=== PATIENT | male | born 1980 | race Caucasian/White ===

== ENCOUNTER 2017-01-16 09:36 | Inpatient (IN) | payer MEDICAID ==
[~2017-01-16] VITALS: Ht 182.9 cm; Wt 90.7 kg
--- NOTE | 2017-01-16 09:36 | NUR ---
Patient was BIBA at this time and taken to bed 07 via gurney per EMS.
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
--- NOTE | 2017-01-16 09:40 | NUR ---
Dr. Sandra at bedside evaluating patient.
[2017-01-16] MEDS ORDERED: NACL 0.9% 1,000 ML IV ONE (09:45)
[2017-01-16] MEDS ORDERED: MULTIVITAMIN-12 10 ML, THIAMINE 100 MG, MAGNESIUM SULFATE 50% 2,000 MG, FOLIC ACID 5 MG... IV ONE (09:45)
[2017-01-16] MEDS ORDERED: VANCOMYCIN 1,000 MG in DEXTROSE 5% 250 ML IV ONE (09:45)
[2017-01-16 09:46] VITALS: BP 138/87
--- NOTE | 2017-01-16 10:20 | NUR ---
ATTEMPTED TO INSERT IV X3 --REQUESTED OTHER RN TO ATTEMPT-- PT HAS HX OF IVDA
[2017-01-16] MEDS ORDERED: ONDANSETRON 4 MG/2 ML VIAL IVP ONE (10:40)
[2017-01-16] MEDS ORDERED: MAGNESIUM OXIDE 400 MG TAB PO ONE (10:40)
[2017-01-16] MEDS ORDERED: ACETAMINOPHEN 325 MG TAB PO PRN (10:50)
[2017-01-16] MEDS ORDERED: VANCOMYCIN PER PHARMACY MC PRN (10:50)
[2017-01-16] MEDS ORDERED: cefTRIAXone 1,000 MG VIAL ONE (11:02)
[2017-01-16] MEDS ORDERED: VANCOMYCIN 1,000 MG VIAL ONE (11:03)
--- NOTE | 2017-01-16 11:09 | NUR ---
XRAY at bedside.
--- NOTE | 2017-01-16 11:31 | NUR ---
Dr. Sandra at bedside to evaluate patient.
--- NOTE | 2017-01-16 12:00 | NUR ---
RN NOT AVAILABLE AT THIS TIME FOR REPORT, CURRENTLY ATTENDING TO ANOTHER PT---ALINE HARRINGTON WILL CALL BACK SHORTLY
--- NOTE | 2017-01-16 12:11 | NUR ---
Patient will be admitted to care of DUSTY CALVIN. Admited to . Will go to room. Belongings list completed. Report to .
--- NOTE | 2017-01-16 12:12 | NUR ---
NO REACTION TO VANCOMYCIN NOTED OF YET
--- NOTE | 2017-01-16 12:17 | NUR ---
Patient going to TELE for admission via gurney per EMT/RN.
--- NOTE | 2017-01-16 12:30 | NUR ---
PT CAME ON THE FLOOR WITH 2 ER NURSES. PT IS ALERT AND ORIENTED. PT SCOOTED HIMSELF FROM GURNEY TO BED. PT IS A 37 Y/O MALE. PT HAS AN IV ON L AC. VANCO RUNNING. THEY ALSO BROUGHT THE BANANA BAG FOR ME TO ADMINISTER. WILL WAIT UNTIL VANCO IS DONE. ASSESSED HIS SKIN. PT HAS A LONG 10-12 INCHES INCISION ON TORSO- 27 STITCHES. PT ALSO HAS AN ABDOMINAL INCISION WITH 32 BRAXTON. L LEG, ABOVE THE KNEE WITH 10 BRAXTON, BELOW- 3 BRAXTON AND 7 BRAXTON. L ANKLE MEDIAL WITH 2 STITCHES. PT CLAIMS THERE ARE TITANIUM SCREWS IN THEM. HE ALSO HAS A DRY SCAB ON HEEL WITH SLIGHT TEAR. ATTACHED TELE MONITOR. NEW ID BAND AND FALL RISK BAND ON. PT IS HUNGRY. ORDERED HIM A LUNCH TRAY. NO COMPLAINTS OF PAIN. V/S WITHIN NORMAL RANGE. WILL CONTINUE TO MONITOR PT.
--- NOTE | 2017-01-16 14:00 | NUR ---
PT REQUESTING PHONE NUMBER FOR MOTHER OR SISTER. PT DOES NOT KNOW THE NUMBER. CALLED OVER TO [facility] [place]QUEST[place] INFORMATION FROM [employer] TO LOCATE NEXT OF KIN. THEY GAVE ME A CELL PHONE NUMBER. NOT SURE WHO'S NUMBER IT WAS. I LEFT MESSAGE TO CALL HERE. PER PT, IT WAS HIS MOTHER'S NUMBER AND THAT SHE CALLED AND THEY SPOKE. WANTED MORE FOOD. I REQUESTED A HAM AND CHEESE SANDWICH AND A SODA.
[2017-01-16 15:12] VITALS: BP 127/80
[2017-01-16] MEDS: HYDROcodone/APAP 5/325 MG 1 TAB TAB PO PRN ×2 (15:29→20:19)
[2017-01-16 16:00] VITALS: BP 116/69
--- NOTE | 2017-01-16 16:48 | NUR ---
PT RESTING IN BED. NO SIGNS OF DISTRESS. WANTED ANOTHER SANDWICH. TOLD HIM DINNER IS ON IT'S WAY. WILL CONTINUE TO MONITOR PT.
[2017-01-16] MEDS ORDERED: VANCOMYCIN 1GM/DEXT 5% PREMIX 200 ML IV SCH (18:00)
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
[2017-01-16] MEDS: NACL 0.9% 1,000 ML IV SCH ×2 (18:53→23:42)
--- NOTE | 2017-01-16 19:05 | NUR ---
ENDORSED PT TO THE CRYSTALLOGRAPHY TEACHER NURSE AT BEDSIDE FOR CONTINUITY OF CARE. PT IS IN STABLE CONDITION.
--- NOTE | 2017-01-16 19:30 | NUR ---
RECEIVED REPORT FROM ALINE HARRINGTON AT BEDSIDE. PT IS ALERT AWAKE ORIENTED X4 WITH CONFUSION SOMETIMES. INITIAL ASSESSMENT DONE. NO S/S OF RESPIRATORY DISTRESS OR SOB NOTED. C/O BACK PAIN SCALING 6/10. WILL GIVE PRN PAIN MEDICATION ORDERED. PLAN OF CARE REVIEWED TO PT AND VERBALIZED UNDERSTANDING. CALL LIGHT WITHIN REACH. WILL CONTINUE TO MONITOR.
[2017-01-16 20:00] VITALS: BP 121/72
[2017-01-16] MEDS: CLINDAMYCIN 600 MG in DEXTROSE 5% 50 ML IV SCH (20:17)
[2017-01-16] MEDS: VANCOMYCIN 1GM/DEXT 5% PREMIX 200 ML IV SCH (20:18)
--- NOTE | 2017-01-16 22:50 | NUR ---
CALLED DR. TAVAREZ AND NOTIFIED THAT PT IS HAVING A LOT OF PAIN ON HIS BACK AND CURRENT PRN PAIN MEDICATION IS NOT EFFECTIVE AND NEW ORDERS WERE GIVEN (PLS. SEE CPOE). NEW ORDERS NOTED AND CARRIED OUT. WILL CONTINUE TO MONITOR.
[2017-01-16] MEDS ORDERED: MORPHINE SULFATE 2 MG/ML SYR ONE (23:15)
[2017-01-16] MEDS: ONDANSETRON 4 MG/2 ML VIAL IVP PRN (23:17)
[2017-01-17] VITALS: BP 126/81
--- NOTE | 2017-01-17 | NUR ---
PT IS SLEEPING RIGHT NOW BUT EASILY AROUSABLE. NO S/S OF ANY DISCOMFORT AT THIS TIME. ALL NEEDS ARE ATTENDED. CALL LIGHT WITHIN REACH. WILL CONTINUE TO MONITOR.
[2017-01-17] MEDS: ONDANSETRON 4 MG/2 ML VIAL IVP PRN (02:41)
[2017-01-17] MEDS: MORPHINE SULFATE 2 MG/ML SYR IVP PRN ×3 (02:41→21:05)
[2017-01-17 04:00] VITALS: BP 119/83
[2017-01-17] MEDS: CLINDAMYCIN 600 MG in DEXTROSE 5% 50 ML IV SCH ×3 (04:51→23:13)
[2017-01-17] MEDS: VANCOMYCIN 1GM/DEXT 5% PREMIX 200 ML IV SCH ×3 (04:52→21:04)
--- NOTE | 2017-01-17 05:30 | NUR ---
AM CARE RENDERED. BED LINEN CHANGED. INSTRUCTED PT REPOSITION. KEPT CLEAN AND DRY. CALL LIGHT WITHIN REACH, WILL CONTINUE TO MONITOR.
--- NOTE | 2017-01-17 07:24 | NUR ---
PT HAS NO S/S OF ANY DISCOMFORT. PLAN OF CARE ENDORSE TO BENNIE RN AT BEDSIDE FOR CONTINUITY OF CARE.
--- NOTE | 2017-01-17 07:25 | NUR ---
ALERT AND ORIENTED X4, BREATHING EVEN AND UNLABORED ON ROOM AIR, NO SIGNS OF ACUTE DISTRESS, SKIN WARM AND DRY, ABDOMINAL INCISION WITH 30 BRAXTON 21CM IN LENGTH WITH NON-BLANCHING REDNESS AROUND SITE KEPT CLEAN AND DRY, C/O PAIN 5/10 ON BACK WILL MEDICATE WITH MORPHINE 2MG ORDERED, NO C/O NAUSEA AND VOMITING, VOIDS INDEPENDENTLY WITHOUT DIFFICULTY, AMBULATES WITH ASSIST, BED IN LOW POSITION WITH SIDE RAILS UP, CALL LIGHT WITHIN REACH.
[2017-01-17 08:00] VITALS: BP 123/72
--- NOTE | 2017-01-17 08:15 | NUR ---
PATIENT HAS BEEN SCREENED AND CATEGORIZED HIGH NUTRITION RISK. PATIENT WILL BE SEEN WITHIN 1-2 DAYS OF ADMISSION. 01/17/17-01/18/[address]
[2017-01-17] MEDS: MAGNESIUM OXIDE 400 MG TAB PO SCH ×2 (10:32→21:04)
--- NOTE | 2017-01-17 10:35 | NUR ---
SEEN BY WOUND CARE NURSE, CONTINUE TO MONITOR.
[2017-01-17] MEDS: HYDROcodone/APAP 5/325 MG 1 TAB TAB PO PRN ×2 (10:37→18:22)
[2017-01-17 11:41] VITALS: BP 123/74
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
[2017-01-17] MEDS: NACL 0.9% 1,000 ML IV SCH (12:11)
--- NOTE | 2017-01-17 12:12 | NUR ---
Social Service Note: Patient homeless waiver in patient's chart.
--- NOTE | 2017-01-17 12:57 | NUR ---
01/17/17 RD INITIAL ASSESSMENT COMPLETED PLEASE REFER TO NUTRITION ASSESSMENT UNDER CARE ACTIVITY FOR ESTIMATED NUTRITIONAL NEEDS. RD RECOMMENDATIONS: 1. CONTINUE REGULAR DIET TOLERATED PER MD 2. PT MEETING 100% OF ESTIMATED KCAL AND PROTEIN NEEDS 3. RD WILL F/U 5-7 DAYS; LOW RISK. MAYCOL KING RD
[2017-01-17] MEDS: GAUZE TP SCH (13:04)
--- NOTE | 2017-01-17 14:01 | NUR ---
NEW AM LAB ORDERS RECEIVED FROM DR. YUAN. NOTED AND CARRIED OUT.
[2017-01-17 16:00] VITALS: BP 129/75
--- NOTE | 2017-01-17 16:00 | NUR ---
PER CHARGE NURSE CRYSTAL, MOVED PT. TO ROOM 124A.
--- NOTE | 2017-01-17 18:52 | NUR ---
PT ALERT AND RESPONSIVE, NO SIGNS OF ACUTE DISTRESS. WILL ENDORSE TO ONCOMING AUTOMOTIVE SERVICE PROFESSIONAL NURSE FOR CONTINUITY OF CARE.
--- NOTE | 2017-01-17 19:25 | NUR ---
RECEIVED FROM AM RN IN BED SLEEPING. REFUSED TO TALK AT THIS TIME. TELEMETRY MONITORING. CALL LIGHT WITH IN REACH AT BEDSIDE. ENCOURAGED TO CALL FOR ANY HELP HE MAY NEED. PT. KNOWN TO HAVE DISORIENTATION AT TIMES.
[2017-01-17 20:00] VITALS: BP 132/72
[2017-01-17] MEDS: QUEtiapine FUMARATE 25 MG TAB PO SCH (21:04)
--- NOTE | 2017-01-17 23:48 | NUR ---
SLEEPING AT THIS TIME. TELEMETRY MONITORING. CALL LIGHT WITH IN REACH.
[2017-01-18] MEDS: NACL 0.9% 1,000 ML IV SCH ×2 (00:20→12:50)
[2017-01-18 00:26] VITALS: BP 124/80
[2017-01-18] MEDS: GAUZE TP SCH ×2 (01:00→12:56)
--- NOTE | 2017-01-18 02:13 | NUR ---
PT. URINATED ON THE FLOOR. DISORIENTED. KEPT DRY AND CLEAN. ABLE TO VERBALIZE SIMPLE NEEDS. NO SOB. TELEMETRY MONITORING. ORIENTED TO ROOM AND CARE GIVERS.
--- NOTE | 2017-01-18 04:30 | NUR ---
PT. WOKE UP. URINATED ON THE FLOOR AGAIN. KEPT CLEAN AND DRY. ABLE TO VERBALIZE SIMPLE NEEDS. WITH CONFUSION NOTED. BED ALARM ON. PT. NOTED TURNS SELF. ENCOURAGED TO STAY ON SIDE TURNED FROM LEFT TO RIGHT SIEDS ONLY. PILLOW SUPPORT TO PRESSURE AREAS.
[2017-01-18] MEDS: VANCOMYCIN 1GM/DEXT 5% PREMIX 200 ML IV SCH ×3 (05:05→22:45)
[2017-01-18] MEDS: CLINDAMYCIN 600 MG in DEXTROSE 5% 50 ML IV SCH ×3 (05:05→21:38)
[2017-01-18 05:29] VITALS: BP 122/78
--- NOTE | 2017-01-18 06:19 | NUR ---
PT. VERY MUCH AWAKE AND PROVIDED WITH SNACK REQUESTED. ABLE TO VERBALIZE NEEDS WELL.
--- NOTE | 2017-01-18 07:27 | NUR ---
ENDORSED TO THE NEXT RN FOR CONTINUITY OF CARE. AWAKE AND ALERT AT THIS TIME. ABLE TO VERBALIZE NEEDS WELL IN ARMENIAN. TELEMETRY MONITORING . NO SOB. NOTED WITH EPISODES OF FORGETFULNESS.
--- NOTE | 2017-01-18 07:28 | NUR ---
PT. AWAKE, ALERT AND ORIENTED X4, BREATHING EVEN AND UNLABORED BILATERALLY, NO APPARENT DISTRESS, ABDOMEN IS SOFT, SKIN DRY, WARM AND INTACT WITH MULTIPLE SURGICAL INCISIONS NO DRAINAGE SEE WOUND ASSESSMENT FOR FURTHER DETAIL, BOWEL CONTINENCE WITH PERIODS OF BLADDER INCONTINENCE, PT. IS ABLE TO PERFORM ADL'S, AMBULATORY WITH ASSIST, HAS PAIN BUT DOESN'T WANT PAIN MEDICATION AT THIS TIME, SIDE RAILS UP, BED LOCKED WITH ALARMS ON, IN LOW POSITION, ALL NEEDS ATTENDED, CALL LIGHT WITHIN REACH.
[2017-01-18 07:40] VITALS: BP 118/78
[2017-01-18] MEDS: QUEtiapine FUMARATE 25 MG TAB PO SCH ×2 (08:24→22:15)
--- NOTE | 2017-01-18 10:30 | NUR ---
ENCOURAGE PATIENT TO AMBULATE TOLERATED, ABLE TO AMBULATE WITH WALKER.
--- NOTE | 2017-01-18 11:29 | NUR ---
RECEIVED NEW LAB ORDERS FROM DR YUAN, TO BE CARRIED OUT.
[2017-01-18 12:00] VITALS: BP 116/71
[2017-01-18 16:00] VITALS: BP 131/88
--- NOTE | 2017-01-18 18:22 | NUR ---
RECEIVED ORDER FROM DR STEWART TRANSFER FROM [facility] TO [facility], ORDER CARRIED OUT.
[2017-01-18] MEDS: HYDROcodone/APAP 5/325 MG 1 TAB TAB PO PRN (18:32)
[2017-01-18] MEDS: ONDANSETRON 4 MG/2 ML VIAL IVP PRN (18:37)
--- NOTE | 2017-01-18 18:56 | NUR ---
PT. ALERT AND ORIENTED X4, IN NO APPARENT DISTRESS, TRANSFER CARE TO LABORATORY COURIER NURSE.
--- NOTE | 2017-01-18 19:05 | NUR ---
PATIENT IS CURRENTLY AWAKE ALERT RESTING IN BED PT STATES,"MY IV LINE CAME OUT." PATIENT HAS BRAXTON TO MID ABDOMEN CURRENTLY DRY AND INTACT WITH REDNESS AROUND THE SKIN AREA.PATIENT LAYING ON HIS BACK REFUSED TO HAVE HIS BACK CHECKED AT THIS TIME.PATIENT CONSTANTLY UNCOVERS HIMSELF AND TAKES OFF HIS GOWN COMPLETELY EXPOSING HIMSELF .I TOLD THE PATIENT HE NEEDS TO COVER HIMSELF UP AND I CONTINUE TO PROVIDE PRIVACY.PATIENT EDUCATED TO VOID IN THE URINAL AND NOT ON THE FLOOR.PATIENT VERBALIZE UNDERSTANDING.CALL LIGHT WITHIN REACH.
[2017-01-18 20:00] VITALS: BP 142/73
--- NOTE | 2017-01-19 00:09 | NUR ---
PATIENT IS SLEEPING IN BED.WILL CONTINUE TO MONITOR.CALL LIGHT WITHIN REACH.
[2017-01-19] MEDS: HYDROcodone/APAP 5/325 MG 1 TAB TAB PO PRN ×2 (00:23→09:25)
[2017-01-19] MEDS: NACL 0.9% 1,000 ML IV SCH ×2 (01:20→04:18)
[2017-01-19] MEDS: GAUZE TP SCH (01:45)
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
[2017-01-19] MEDS: CLINDAMYCIN 600 MG in DEXTROSE 5% 50 ML IV SCH (04:42)
[2017-01-19] MEDS: VANCOMYCIN 1GM/DEXT 5% PREMIX 200 ML IV SCH (04:43)
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
[2017-01-19 05:00] VITALS: BP 101/57
--- NOTE | 2017-01-19 06:35 | NUR ---
WATER JET LOOM FIXER CAME AND SAID SHE FELT UNCOMFORTABLE DRAWING BLOOD WITH THE PATIENT COMPLETELY EXPOSED OR NUDE I ASKED THE PATIENT TO COVER HIMSELF PT VERBALIZES UNDERSTANDING BUT CONTINUES TO REMOVE HIS GOWN AND BLANKETS.WILL CONTINUE TO MONITOR.
--- NOTE | 2017-01-19 07:25 | NUR ---
REPORT ENDORSED TO JUANY HUDSON AT BEDSIDE HE WILL RESUME CARE OF THE PATIENT.
[2017-01-19 08:00] VITALS: BP 118/69
--- NOTE | 2017-01-19 08:00 | NUR ---
PATIENT ALERT AND ORIENTED X4, BREATHING EVEN AND UNLABORED BILATERALLY, NO SIGNS OF ACUTE DISTRESS, ABDOMEN SOFT AND ROUND, BOWEL CONTINENCE WITH PERIODS OF BLADDER INCONTINENCE, AMBULATES WITH ASSIST AND ABLE TO PERFORM ADL'S INDEPENDENTLY, SKIN DRY WITH SURGICAL INCISIONS ON ABDOMEN, RT. MEDIAL ANKLE, LT. LATERAL CHEST, BACK, RT KNEE, AND ANTERIOR PROXIMAL RIGHT THIGH. SLIGHT REDNESS ALONG ABDOMINAL INCISION, NO DRAINAGE. NO COMPLAINT OF PAIN AT THIS TIME, BED IN LOW POSITION WITH BILATERAL HALF SIDE RAILS UP, CALL LIGHT WITHIN REACH.
[2017-01-19] MEDS: QUEtiapine FUMARATE 25 MG TAB PO SCH (09:14)
[2017-01-19] MEDS: ONDANSETRON 4 MG/2 ML VIAL IVP PRN (09:23)
[2017-01-19] MEDS ORDERED: MAG SULF 2000 MG/WATER PREMIX 50 ML IV ONE (09:45)
[2017-01-19] MEDS ORDERED: BD LACTINEX1.4 MG PO (10:57)
[2017-01-19] MEDS ORDERED: LEVAQUIN750 MG PO (10:57)
[2017-01-19] MEDS ORDERED: NORCO 325 MG-51 TAB PO (10:57)
[2017-01-19] MEDS ORDERED: GOOD SENSE OMEP20 MG PO (10:57)
[2017-01-19] MEDS ORDERED: CLINDAMYCIN HC300 MG PO (10:57)
[2017-01-19] MEDS ORDERED: COLACE100 MG PO (10:57)
[2017-01-19] MEDS ORDERED: MOTRIN600 MG PO (10:57)
--- NOTE | 2017-01-19 13:20 | NUR ---
PT ALERT AND ORIENTED, NO SIGNS OF ACUTE DISTRESS, NO C/O PAIN. MAY D/C HOME ORDERED. EDUCATED PT AND FAMILY ON CONTINUING PLAN OF CARE. FOLLOW UP WITH PCP IN 1 WEEK. REVIEWED DISCHARGE PRESCRIPTIONS, SIDE EFFECTS AND INDICATION. PROVIDED WOUND CARE TEACHING, PHOTOS TAKEN. PT AND FAMILY VERBALIZED UNDERSTANDING. IV LINE AND WRISTS BANDS REMOVED, PERSONAL BELONGINGS WITH PT UPON DISCHARGE. PICKED UP BY FAMILY MEMBER AND ESCORTED OUTSIDE BY WHEELCHAIR. TO GO HOME WITH PRIVATE AUTO.
== END 2017-01-19 13:20 | disposition home or self-care (01) | DRG 720 ==
LOC: MED 09:36 → MTU 11:19
PROVIDERS: ADMIT Family Medicine; ATTEND Family Medicine
DX: A41.9 Sepsis, unspecified organism (principal); N17.0 Acute kidney failure with tubular necrosis; E44.0 Moderate protein-calorie malnutrition; E83.42 Hypomagnesemia; L03.311 Cellulitis of abdominal wall; L03.312 Cellulitis of back [any part except buttock and flank]; E80.6 Other disorders of bilirubin metabolism; Z53.29 Procedure and treatment not carried out because of patient's decision for other reasons; R74.0 Nonspecific elevation of levels of transaminase and lactic acid dehydrogenase [LDH]; F11.10 Opioid abuse, uncomplicated; F15.10 Other stimulant abuse, uncomplicated; D47.3 Essential (hemorrhagic) thrombocythemia; E87.1 Hypo-osmolality and hyponatremia; K76.0 Fatty (change of) liver, not elsewhere classified; Z91.14 Patient's other noncompliance with medication regimen; Z68.27 Body mass index [BMI] 27.0-27.9, adult; Z59.0 Homelessness

== ENCOUNTER 2017-01-28 15:31 | Emergency (ER) | payer MEDICAID ==
[~2017-01-28] VITALS: Ht 172.7 cm; Wt 99.8 kg
[~2017-01-28 15:31] MED LIST: ACET-2869 PO; CLIN300C99 PO; DOCU-264 PO; IBUP-2213 PO; LACT1.4C PO; LEVO750T2 PO; OMEP20TC24 PO
[2017-01-28 15:43] VITALS: BP 134/86
== END 2017-01-28 18:18 | disposition left against medical advice (07) ==
LOC: MED 15:31
DX: M79.673 Pain in unspecified foot (principal); R10.13 Epigastric pain; Z53.21 Procedure and treatment not carried out due to patient leaving prior to being seen by health care provider

== ENCOUNTER 2018-11-29 15:44 | Inpatient (IN) | payer MEDICAID ==
[~2018-11-29] VITALS: Ht 180.3 cm; Wt 105.7 kg
[~2018-11-29 15:44] MED LIST changes: -ACET-2869 PO; +CLIN-178 PO; -CLIN300C99 PO; -DOCU-264 PO; +DOCU-300 PO; +HYDR-5122 PO; +OMEP20TC12 PO; -OMEP20TC24 PO
[2018-11-29 16:10] VITALS: BP 125/95
--- NOTE | 2018-11-29 17:19 | NUR ---
Pt. ambulated to ER bed 2
--- NOTE | 2018-11-29 17:29 | NUR ---
Patient being evaluated by physician at bedside.
[2018-11-29] MEDS ORDERED: VANCOMYCIN 1,000 MG in DEXTROSE 5% 250 ML IV ONE (17:30)
[2018-11-29] MEDS ORDERED: VANCOMYCIN 1,000 MG VIAL ONE (17:40)
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
--- NOTE | 2018-11-29 17:45 | NUR ---
LAB AT BEDSIDE
[2018-11-29 17:51] LABS: BASOPHILS # (AUTO) 0.1 K/uL (0.00-0.22); BASOPHILS % (AUTO) 0.6 % (0.0-2.0); EOSINOPHILS # (AUTO) 0.2 K/uL (0-0.4); EOSINOPHILS % (AUTO) 2.2 % (0.0-4.0); HEMATOCRIT 42.3 % (36-52); HEMOGLOBIN 13.8 g/dL (12.0-18.0); LYMPHOCYTES # (AUTO) 1.5 K/uL (2.0-11.5); LYMPHOCYTES % (AUTO) 16.1 % (20.5-51.1); MEAN CORPUSCULAR HEMOGLOBIN 29 pg (27-31); MEAN CORPUSCULAR HGB CONC 33 g/dL (33-37); MEAN CORPUSCULAR VOLUME 90.1 fL (80-94); MONOCYTES # (AUTO) 0.7 K/uL (0.8-1.0); MONOCYTES % (AUTO) 7.4 % (1.7-9.3); NEUTROPHILS # (AUTO) 6.8 K/uL (1.8-7.7); NEUTROPHILS % (AUTO) 73.7 % (42.2-75.2); PLATELET COUNT (AUTO) 296 K/uL (140-450); RED BLOOD CELL COUNT(AUTO) 4.69 MIL/uL (4.20-6.10); RED CELL DISTRIBUTION WIDTH 13.6 % (11.6-13.7); WHITE BLOOD COUNT (AUTO) 9.3 K/uL (4.8-10.8)
[2018-11-29 18:02] LABS: ANION GAP 10.5 (8-16); CARBON DIOXIDE 30.5 mmol/L (21-32)
[2018-11-29 18:08] LABS: TOTAL BILIRUBIN 0.4 mg/dL (0.0-1.0)
--- NOTE | 2018-11-29 18:18 | NUR ---
PT TAKEN TO RAD
[2018-11-29 18:20] LABS: APPEARANCE,URINE CLEAR (CLEAR); BILIRUBIN,URINE NEGATIVE (NEGATIVE); BLOOD, URINE NEGATIVE (NEGATIVE); COLOR,URINE YELLOW (YELLOW); LEUKOCYTE ESTERASE ,URINE NEGATIVE (NEGATIVE); NITRITE, URINE NEGATIVE (NEGATIVE); UGLUCOSE NEGATIVE (NEGATIVE)
[2018-11-29] MEDS ORDERED: VANCOMYCIN PER PHARMACY MC PRN (18:30)
[2018-11-29] MEDS ORDERED: ACETAMINOPHEN 325 MG TAB PO PRN (18:30)
[2018-11-29] MEDS ORDERED: ONDANSETRON 4 MG/2 ML VIAL IM/IVP PRN (18:30)
[2018-11-29] MEDS ORDERED: DOCUSATE SODIUM 100 MG GELCAP PO PRN (18:30)
[2018-11-29] MEDS ORDERED: KETOROLAC 15 MG/ML VIAL IVP PRN (18:30)
--- NOTE | 2018-11-29 18:59 | NUR ---
PT TAKEN TO [facility] FLOOR BY JUANY RAI VIA WHEELCHAIR
--- NOTE | 2018-11-29 19:00 | NUR ---
Patient will be admitted to care of . Admited to med surg. Will go to room 112-b. Belongings list completed. Report to bonnie zeng.
[2018-11-29 19:09] LABS: PROTHROMBIN TIME 9.7 secs (10.8-13.4)
[2018-11-29 19:10] VITALS: BP 120/80
[2018-11-29 19:10] LABS: BARBITURATE, URINE NEG. ng/ml (NEG <=200); BENZODIAZEPINE, URINE NEG. ng/mL (NEG <=200); CANNABINOID, URINE NEG. ng/mL (NEG <=50); COCAINE, URINE NEG. ng/mL (NEG <=300); OPIATE, URINE NEG. ng/mL (NEG <=2000); PHENCYCLIDINE SCREEN,URINE NEG. ng/mL (NEG <=25)
--- NOTE | 2018-11-29 19:10 | NUR ---
ADMITTED A 38 MALE FROM ER. CAME BY WHEELCHAIR . MED SURG PT. AWAKE, ALERT AND ORIENTED X4. CAME DUE TO LT UPPER ARM ABSCESS,HARD AND SWOLLEN. WITH IV ACCESS ON THE RT AC G#20 CLEAR AND PATENT. VANCOMYCIN IV STILL NEED TO CONTINUE INFUSING. NO C/O ANY PAIN OR DISCOMFORT NOTED AT THIS TIME. ORIENTED TO HOSPITAL ROUTINES. CALL LIGHT PLACED WITHIN REACH. URINAL ALSO PROVIDED. BED ON LOW POSITION. INSTRUCTED PT TO CALL IF NEED ASSISTANCE. PLAN OF CARFE DISCUSSED AND VERBALIZED UNDERSTANDING. WILL FOLLOW UP ADMIT ORDERS. WILL CONTINUE TO MONITOR.
[2018-11-29 19:17] LABS: PHOSPHORUS 3.7 mg/dL (2.5-4.9); THYROID STIMULATING HORMONE 2.48 uIU/mL (0.34-3.74)
--- NOTE | 2018-11-29 20:30 | NUR ---
PT HAD A SANDWICH AND SOME CRACKERS AND JUICE. TOLERATED WELL.
[2018-11-29] MEDS: NACL 0.9% 1,000 ML IV SCH (20:31)
[2018-11-29] MEDS ORDERED: ceFAZolin 1,000 MG VIAL ONE (20:35)
--- NOTE | 2018-11-29 22:15 | NUR ---
US TECH AT BEDSIDE FOR US ARTERIAL AND VENOUS LT UPPER EXTREMITY.
[2018-11-29] MEDS ORDERED: INFLUENZA VIRUS VACCINE QUAD 0.5 ML SYR IMVAC PRN (23:40)
--- NOTE | 2018-11-30 00:30 | NUR ---
AWAKE. NO C.O ANY PAIN NOTED. WILL CONTINUE TO MONITOR.
[2018-11-30 00:32] VITALS: BP 107/72
--- NOTE | 2018-11-30 02:00 | NUR ---
MADE ROUNDS. IV HAS BEEN BEEPING. FLUSHED WITH NS 10ML. CLEAR AND PATENT. INSTRUCTED PT TO STRAIGHTENED RT ARM . VERBALIZED UNDERSTANDING.
[2018-11-30] MEDS ORDERED: ceFAZolin 1,000 MG VIAL ONE (04:12)
[2018-11-30] MEDS: NACL 0.9% 1,000 ML IV SCH ×3 (04:28→23:49)
--- NOTE | 2018-11-30 06:00 | NUR ---
BLOOD HAS BEEN DRAWN. WILL FOLLOW UP RESULT.
[2018-11-30 06:54] LABS: BASOPHILS # (AUTO) 0.1 K/uL (0.00-0.22); BASOPHILS % (AUTO) 0.9 % (0.0-2.0); EOSINOPHILS # (AUTO) 0.2 K/uL (0-0.4); EOSINOPHILS % (AUTO) 3.2 % (0.0-4.0); HEMATOCRIT 39.5 % (36-52); HEMOGLOBIN 12.9 g/dL (12.0-18.0); LYMPHOCYTES # (AUTO) 1.1 K/uL (2.0-11.5); LYMPHOCYTES % (AUTO) 20.4 % (20.5-51.1); MEAN CORPUSCULAR HEMOGLOBIN 29 pg (27-31); MEAN CORPUSCULAR HGB CONC 33 g/dL (33-37); MEAN CORPUSCULAR VOLUME 89.7 fL (80-94); MONOCYTES # (AUTO) 0.5 K/uL (0.8-1.0); MONOCYTES % (AUTO) 8.9 % (1.7-9.3); NEUTROPHILS # (AUTO) 3.7 K/uL (1.8-7.7); NEUTROPHILS % (AUTO) 66.6 % (42.2-75.2); PLATELET COUNT (AUTO) 230 K/uL (140-450); RED CELL DISTRIBUTION WIDTH 13.7 % (11.6-13.7); WHITE BLOOD COUNT (AUTO) 5.5 K/uL (4.8-10.8)
--- NOTE | 2018-11-30 07:15 | NUR ---
ENDORSED PT IN STABLE CONDITION TO AM NURSE.
[2018-11-30 07:16] LABS: CARBON DIOXIDE 27.8 mmol/L (21-32); CREATININE 0.9 mg/dL (0.7-1.3); POTASSIUM 3.8 mmol/L (3.5-5.1)
--- NOTE | 2018-11-30 07:16 | NUR ---
Received bedside report from pm nurse Jasmin. Pt sitting up in chair, no signs of distress, no c/o discomfort. R ac IV intact with ongoing NS @ 100ml/hr. Call light within reach.
[2018-11-30 07:21] LABS: CHOL/HDL RATIO 2.6 (1-4.5); MAGNESIUM 1.8 mg/dL (1.8-2.4); PHOSPHORUS 3.1 mg/dL (2.5-4.9)
[2018-11-30 08:00] VITALS: BP 121/75
--- NOTE | 2018-11-30 08:27 | NUR ---
PATIENT HAS BEEN SCREENED AND CATEGORIZED MODERATE NUTRITION RISK. PATIENT WILL BE SEEN WITHIN 3-5 DAYS OF ADMISSION. 12/02/18[address]
[2018-11-30] MEDS: LACTOBACILLUS RHAMNOSUS GG 1 EACH CAP PO SCH (08:38)
[2018-11-30] MEDS: VANCOMYCIN 1,250 MG in DEXTROSE 5% 250 ML IV SCH ×2 (10:12→17:58)
--- NOTE | 2018-11-30 11:46 | NUR ---
Pt in bed, asleep, respirations even & nonlabored, FLACC 0. R ac IV intact with ongoing NS @ 100 ml/hr. Call light within reach.
[2018-11-30 16:00] VITALS: BP 112/74
--- NOTE | 2018-11-30 18:00 | NUR ---
Pt sitting up in bed, eating dinner. No c/o discomfort, no signs of distress. Call light within reach.
--- NOTE | 2018-11-30 19:22 | NUR ---
Report given to pm nurse Summer. Pt stable, no signs of distress.
--- NOTE | 2018-11-30 19:22 | NUR ---
RECEIVED BEDSIDE REPORT FROM DAY SHIFT RN, PATIENT IN BED, ON RA, NO SIGNS OF DISTRESS, DENIES PAIN, NOTED LEFT UPPER ARM CELLULINS SENIOR TELECOMMUNICATIONS TECHNICIAN. IV IN RIGHT AC 20 G INFUSING VANCO AT 165 ML/HR. EXPLAINED PLAN OF CARE, CALL LIGHT WITHIN REACH, WILL CONTINUE TO MONITOR.
--- NOTE | 2018-11-30 21:13 | NUR ---
DUE ANTIBIOTIC GIVEN, EDUCATION PROVIDED, WILL CONTINUE TO MONITOR.
--- NOTE | 2018-11-30 23:30 | NUR ---
PATIENT PULLED PUT IV, STARTED NEW IV IN RIGHT WRIST 22 G. INFUSING NS AT 100 ML/HR.
[2018-12-01] VITALS: BP 114/84
--- NOTE | 2018-12-01 00:10 | NUR ---
V/S TAKEN ALL WITHIN BASELINE, WILL CONTINUE TO MONITOR.
[2018-12-01] MEDS: VANCOMYCIN 1,250 MG in DEXTROSE 5% 250 ML IV SCH (01:01)
--- NOTE | 2018-12-01 01:05 | NUR ---
DUE VANCO GIVEN
--- NOTE | 2018-12-01 02:05 | NUR ---
PATIENT WATCHING TV IN BED, IV INFUSING VANCO AT 165 ML/HR, NO PAIN OR REDNESS AT SITE. CALL LIGHT WITHIN REACH, WILL CONTINUE TO MONITOR.
--- NOTE | 2018-12-01 04:14 | NUR ---
DUE ANTIBIOTIC GIVE, WILL CONTINUE TO MONITOR.
--- NOTE | 2018-12-01 06:01 | NUR ---
PATIENT ASLEEP CALL LIGHT WITHIN REACH
--- NOTE | 2018-12-01 07:10 | NUR ---
ENDORSED PATIENT TO DAY SHIFT NURSE, PATIENT STABLE.
--- NOTE | 2018-12-01 07:11 | NUR ---
Received report from pm nurse Summer. Pt asleep, respirations even & nonlabored, FLACC 0. Call light within reach.
[2018-12-01 07:41] LABS: MAGNESIUM 1.7 mg/dL (1.8-2.4); PHOSPHORUS 3.6 mg/dL (2.5-4.9)
[2018-12-01 08:00] VITALS: BP 115/68
[2018-12-01 08:18] LABS: BASOPHILS % (AUTO) 0.5 % (0.0-2.0); EOSINOPHILS # (AUTO) 0.1 K/uL (0-0.4); EOSINOPHILS % (AUTO) 2.4 % (0.0-4.0); HEMATOCRIT 41.9 % (36-52); HEMOGLOBIN 13.7 g/dL (12.0-18.0); LYMPHOCYTES % (AUTO) 16.5 % (20.5-51.1); MEAN CORPUSCULAR HEMOGLOBIN 29 pg (27-31); MEAN CORPUSCULAR HGB CONC 33 g/dL (33-37); MEAN CORPUSCULAR VOLUME 90.1 fL (80-94); MONOCYTES # (AUTO) 0.5 K/uL (0.8-1.0); MONOCYTES % (AUTO) 8.6 % (1.7-9.3); NEUTROPHILS # (AUTO) 4.5 K/uL (1.8-7.7); PLATELET COUNT (AUTO) 252 K/uL (140-450); RED BLOOD CELL COUNT(AUTO) 4.65 MIL/uL (4.20-6.10); RED CELL DISTRIBUTION WIDTH 13.7 % (11.6-13.7); WHITE BLOOD COUNT (AUTO) 6.3 K/uL (4.8-10.8)
[2018-12-01 08:23] LABS: POTASSIUM 4.5 mmol/L (3.5-5.1)
[2018-12-01 08:24] LABS: ANION GAP 11.7 (8-16); CARBON DIOXIDE 28.8 mmol/L (21-32); CREATININE 0.9 mg/dL (0.7-1.3)
[2018-12-01] MEDS ORDERED: MAGNESIUM OXIDE 400 MG TAB PO SCH (09:26)
[2018-12-01] MEDS: LACTOBACILLUS RHAMNOSUS GG 1 EACH CAP PO SCH (09:38)
[2018-12-01] MEDS ORDERED: LACT1.4C PO (09:50)
[2018-12-01] MEDS ORDERED: SULF-58 PO (09:50)
[2018-12-01] MEDS ORDERED: SULFAMETH/TRIMETH DS 800/160MG 1 TAB PO SCH (10:59)
--- NOTE | 2018-12-01 11:00 | NUR ---
Written & verbal discharge instructions provided to pt & mother Xiomara, verbalized understanding & agree with discharge plans. IV access discontinued.
--- NOTE | 2018-12-01 11:50 | NUR ---
Pt discharged to home at this time. Name band removed. Amb off unit with steady gait, accompanied by mother Xiomara. All belongings with pt upon discharge.
[2018-12-02] MEDS ORDERED: SULFAMETH/TRIMETH DS 800/160MG 1 TAB PO SCH (09:00)
== END 2018-12-01 11:50 | disposition home or self-care (01) | DRG 383 ==
LOC: MED 15:44 → MTU 18:41
PROVIDERS: ADMIT General Practice; ATTEND General Practice
DX: L03.114 Cellulitis of left upper limb (principal); E87.8 Other disorders of electrolyte and fluid balance, not elsewhere classified; E83.42 Hypomagnesemia; E66.9 Obesity, unspecified; E86.0 Dehydration; Z68.32 Body mass index [BMI] 32.0-32.9, adult; F15.10 Other stimulant abuse, uncomplicated; F17.210 Nicotine dependence, cigarettes, uncomplicated; Z71.3 Dietary counseling and surveillance; I25.2 Old myocardial infarction; Z86.73 Personal history of transient ischemic attack (TIA), and cerebral infarction without residual deficits; Z56.0 Unemployment, unspecified; Z23 Encounter for immunization
CPT/HCPCS: 36415; 71045; 76536; 80048; 80053; 80202; 80305; 81003; 83036; 83605; 83735; 83880; 84100; 84443; 85025; 85610; 85730; 87040; 87081; 87086; 93005; 93971; 96365; 99285; J0690; J3370; J7030; J7060; Q0092

== ENCOUNTER 2019-04-09 18:46 | Emergency (ER) | payer MEDICAID, OTHER ==
[~2019-04-09] VITALS: Ht 180.3 cm; Wt 114.0 kg
[~2019-04-09 18:46] MED LIST changes: -CLIN-178 PO; -DOCU-300 PO; -HYDR-5122 PO; -IBUP-2213 PO; -LEVO750T2 PO; -OMEP20TC12 PO; +SULF-58 PO
[2019-04-09 18:57] VITALS: BP 138/89
--- NOTE | 2019-04-09 19:50 | NUR ---
PT TAKEN TO BED 10.
--- NOTE | 2019-04-09 20:00 | NUR ---
39 YO M BIB SELF PRESENTS TO ED C/O ABSCESS TO LEFT MEDIAL ANKLE FROM IV DRUG INJECTION. PT ADMITS TO USING METH. LAST USE TODAY. MULTIPLE CLOSED LESIONS NOTED TO ARMS. PT DENIES FEVER, CHILLS, N/V, DRAINAGE FROM SITE. -- PT AWAKE, ALERT, CALM, COOPERATIVE. ANSWERING QUESTIONS APPROPRIATELY. -- SKIN PINK, WARM, DRY. POOR HYGIENE NOTED. BREATHING EVEN, UNLABORED. PMH-- DENIES RX-- DENIES
--- NOTE | 2019-04-09 21:08 | NUR ---
DR. BLAIR EVALUATING AT BEDSIDE.
[2019-04-09] MEDS ORDERED: SULFAMETH/TRIMETH DS 800/160MG 1 TAB PO ONE (21:15)
[2019-04-09] MEDS ORDERED: CLINDAMYCIN 150 MG CAP PO ONE (21:15)
--- NOTE | 2019-04-09 21:18 | NUR ---
PT IS REFUSING TO RECEIVE MEDICATIONS. PT STATES "I DON'T HAVE TIME TO WAIT FOR THEM." PT MADE AWARE OF RISKS/BENEFITS REGARDING MEDICATION. AGREED TO WAIT FOR RX AND DISCHARGE PAPERWORK. DR. BLAIR MADE AWARE.
[2019-04-09 21:19] VITALS: BP 138/89
--- NOTE | 2019-04-09 21:19 | NUR ---
Patient discharged with v/s stable. Written and verbal after care instructions given and explained. Patient alert, oriented and verbalized understanding of instructions. Ambulatory with steady gait. All questions addressed prior to discharge. ID band removed. Patient advised to follow up with PMD. Rx of Cleocin and Bactrim given. Patient educated on indication of medication including possible reaction and side effects. Opportunity to ask questions provided and answered.
== END 2019-04-09 21:19 | disposition home or self-care (01) ==
LOC: MED 18:46
DX: L02.413 Cutaneous abscess of right upper limb (principal); L02.414 Cutaneous abscess of left upper limb; Z79.899 Other long term (current) drug therapy
CPT/HCPCS: 99283

== ENCOUNTER 2019-10-19 08:00 | Emergency (ER) | payer OTHER ==
[~2019-10-19] VITALS: Ht 180.3 cm; Wt 104.3 kg
[2019-10-19 08:01] VITALS: BP 131/44
[2019-10-19 08:33] VITALS: BP 131/44
--- NOTE | 2019-10-19 08:33 | NUR ---
brought in by leslie delcid for pre-book--- pt has no medical complaints at this time
--- NOTE | 2019-10-19 08:34 | NUR ---
PATIENT BIB [employer]. PATIENT EXAMINED BY . PATIENT MEDICALLY CLEARED AND RELEASED IN CUSTODY IN STABLE CONDITION. ORIGINAL PRE-BOOK FORM GIVEN TO OFFICER .
== END 2019-10-19 08:34 ==
LOC: MED 08:00
DX: Z02.89 Encounter for other administrative examinations (principal); Z79.899 Other long term (current) drug therapy
CPT/HCPCS: 99283

== ENCOUNTER 2023-04-19 08:46 | Emergency (ER) | payer OTHER ==
[~2023-04-19] VITALS: Ht 180.3 cm; Wt 97.5 kg
[~2023-04-19 08:46] MED LIST changes: +SULF-59 PO
[2023-04-19 08:47] VITALS: BP 126/65; PULSE 100; RESP 20; TEMP 99.6; O2SAT 94
[2023-04-19 09:38] VITALS: BP 126/65; PULSE 100; RESP 20; TEMP 99.6; O2SAT 94
--- NOTE | 2023-04-19 09:38 | NUR ---
PATIENT [facility] [employer]. PATIENT EXAMINED BY DR. AVALOS. PATIENT MEDICALLY CLEARED AND RELEASED IN CUSTODY IN STABLE CONDITION. ORIGINAL PRE-BOOK FORM GIVEN TO OFFICER.
== END 2023-04-19 09:38 ==
LOC: MED 08:46
DX: R06.02 Shortness of breath (principal); R45.1 Restlessness and agitation; Z79.899 Other long term (current) drug therapy
CPT/HCPCS: 99283

== ENCOUNTER 2023-11-27 11:12 | Emergency (ER) | payer OTHER ==
[~2023-11-27] VITALS: Ht 180.3 cm; Wt 90.7 kg
[2023-11-27 11:14] VITALS: BP 128/76; PULSE 103; RESP 16; TEMP 98.9; O2SAT 96
[2023-11-27] MEDS ORDERED: AMOX1TAB8 PO (12:08)
[2023-11-27] MEDS ORDERED: BENZ-300 PO (12:08)
== END 2023-11-27 12:03 | disposition left against medical advice (07) ==
LOC: MED 11:12
DX: S90.829A Blister (nonthermal), unspecified foot, initial encounter (principal); Z53.21 Procedure and treatment not carried out due to patient leaving prior to being seen by health care provider; X58.XXXA Exposure to other specified factors, initial encounter; Y93.89 Activity, other specified; Y92.89 Other specified places as the place of occurrence of the external cause; Y99.8 Other external cause status
CPT/HCPCS: 99281

== ENCOUNTER 2024-01-19 09:49 | Emergency (ER) | payer OTHER ==
[~2024-01-19] VITALS: Ht 180.3 cm; Wt 117.9 kg
[2024-01-19 09:50] VITALS: BP 126/87; PULSE 88; RESP 14; TEMP 99.1; O2SAT 97
[2024-01-19] MEDS: NACL 0.9% 1,000 ML IV ONE ×2 (10:20→10:59)
[2024-01-19] MEDS: ONDANSETRON 4 MG/2 ML VIAL IVP ONE (10:24)
[2024-01-19 10:54] LABS: BASOPHILS % (AUTO) 0.6 % (0.0-2.0); EOSINOPHILS # (AUTO) 0.2 K/uL (0-0.4); EOSINOPHILS % (AUTO) 2.6 % (0.0-4.0); HEMATOCRIT 37.2 % (36-52); HEMOGLOBIN 12.7 g/dL (12.0-18.0); LYMPHOCYTES # (AUTO) 1.2 K/uL (2.0-11.5); LYMPHOCYTES % (AUTO) 20.1 % (20.5-51.1); MEAN CORPUSCULAR HEMOGLOBIN 31 pg (27-31); MEAN CORPUSCULAR HGB CONC 34 g/dL (33-37); MEAN CORPUSCULAR VOLUME 90.6 fL (80-94); MONOCYTES # (AUTO) 0.5 K/uL (0.8-1.0); MONOCYTES % (AUTO) 8.9 % (1.7-9.3); NEUTROPHILS # (AUTO) 4.1 K/uL (1.8-7.7); NEUTROPHILS % (AUTO) 67.8 % (42.2-75.2); PLATELET COUNT (AUTO) 261 K/uL (140-450); RED CELL DISTRIBUTION WIDTH 13.1 % (11.6-13.7); WHITE BLOOD COUNT (AUTO) 6.1 K/uL (4.8-10.8)
[2024-01-19 11:01] LABS: ANION GAP 15.8 (8-16); CALCIUM 8.4 mg/dL (8.5-10.1); CARBON DIOXIDE 25.7 mmol/L (21-32); POTASSIUM 3.5 mmol/L (3.5-5.1)
[2024-01-19 11:27] LABS: ALANINE AMINOTRANSFERASE 34 U/L (12-78); ALBUMIN 3.6 g/dL (3.4-5.0); ALKALINE PHOSPHATASE 71 U/L (50-136); ASPARTATE AMINOTRANSFERASE 35 U/L (15-37); BILIRUBIN,DIRECT 0.1 mg/dL (0.0-0.3); TOTAL BILIRUBIN 0.3 mg/dL (0.0-1.0); TOTAL PROTEIN, SERUM 7.2 g/dL (6.4-8.2)
[2024-01-19 18:54] VITALS: BP 125/85; PULSE 89; RESP 16; TEMP 98.3; O2SAT 97
== END 2024-01-19 18:54 | disposition home or self-care (01) ==
LOC: MED 09:49
DX: R40.4 Transient alteration of awareness (principal); T40.2X1A Poisoning by other opioids, accidental (unintentional), initial encounter; Y92.89 Other specified places as the place of occurrence of the external cause
CPT/HCPCS: 36415; 71045; 80048; 80076; 84484; 85025; 93005; 96361; 96374; 99285; J2405